=== PATIENT | male | born 1975 | race African-American/Black ===

== ENCOUNTER 2017-04-16 19:45 | Emergency (ER) | payer OTHER ==
[~2017-04-16] VITALS: Ht 147.3 cm; Wt 107.0 kg
[~2017-04-16 19:45] MED LIST: ATORVASTATIN CA40 MG PO; HYDROCHLOROTHIA25 M2 PO; LISINOPRIL20 MG PO; NORCO 5-325 TA1 EACH PO; ZESTRIL20 MG PO
[2017-04-16] MEDS ORDERED: FLEXERIL PO (20:54)
[2017-04-16] MEDS ORDERED: MEDROLDOSEPACK PO (20:54)
[2017-04-16] MEDS ORDERED: MOBIC15 MG PO (20:54)
== END 2017-04-16 21:04 | disposition home or self-care (01) ==
LOC: ER 19:45
DX: M54.12 Radiculopathy, cervical region (principal); M25.511 Pain in right shoulder; I10 Essential (primary) hypertension; E78.00 Pure hypercholesterolemia, unspecified

== ENCOUNTER 2017-05-25 23:24 | Emergency (ER) | payer OTHER ==
[~2017-05-25] VITALS: Ht 177.8 cm; Wt 106.6 kg
[~2017-05-25 23:24] MED LIST changes: +FLEXERIL PO; +MEDROLDOSEPACK PO; +MOBIC15 MG PO
[2017-05-26] MEDS ORDERED: IBUPROFEN 600600 M1 PO (02:15)
[2017-05-26] MEDS ORDERED: SENNA-DOCUSATE1 EACH PO (02:15)
[2017-05-26] MEDS ORDERED: NORCO 5-325 TA1 EACH PO (02:15)
[2017-05-26] MEDS ORDERED: FLEXERIL PO (02:15)
== END 2017-05-26 02:43 | disposition home or self-care (01) ==
LOC: ER 23:24
DX: S52.001A Unspecified fracture of upper end of right ulna, initial encounter for closed fracture (principal); I10 Essential (primary) hypertension; E78.00 Pure hypercholesterolemia, unspecified; W00.0XXA Fall on same level due to ice and snow, initial encounter; Y93.89 Activity, other specified; Y92.89 Other specified places as the place of occurrence of the external cause; Y99.8 Other external cause status